=== PATIENT | male | born 1965 | race Caucasian/White ===

== ENCOUNTER 2021-06-22 19:37 | Emergency (ER) | payer OTHER ==
[~2021-06-22 19:37] MED LIST: BENICAR HCT 401 EAC1 PO
[2021-06-22 20:10] LABS: BASOPHIL 0.7 % (0-2); EOSINOPHIL 0.5 % (0-5); HCT 45.9 % (42.0-52.0); HGB 15.8 g/dl (13.2-18.0); LYMPHOCYTE 12.5 % (15-48); MCH 30.2 pg (25.0-31.0); MCHC 34.4 g/dL (32.0-36.0); MCV 87.6 fL (78.0-100.0); MONOCYTE 14.9 % (0-12); MPV 10.2 fL (6.0-9.5); NEUTROPHIL 70.8 % (41-80); NRBC 0; PLT 198 K/uL (150-400); RBC 5.24 M/uL (4.70-6.00); RDW 13.1 % (11.5-14.0); WBC 10.6 K/uL (4.0-10.5)
[2021-06-22 20:35] LABS: ALBUMIN 3.9 g/dL (3.4-5.0); BILIRUBIN - TOTAL 0.8 mg/dL (0.2-1.0); BUN/CREAT RATIO (CALC) 7.3 RATIO; CREATININE 1.5 mg/dL (0.67-1.17); FT4 (FREE T4) 0.9 ng/dL (0.76-1.46); GLOBULIN (CALCULATION) 3.8 g/dL; POTASSIUM 3.3 mmol/L (3.5-5.1); TOTAL PROTEIN 7.7 g/dL (6.4-8.2)
[2021-06-22 20:58] LABS: BILIRUBIN NEGATIVE (NEGATIVE); BLOOD NEGATIVE Ery/uL (NEGATIVE); CLARITY CLEAR (CLEAR); COLOR YELLOW (YELLOW); GLUCOSE (U) NORMAL (NORMAL); LEUKOCYTES NEGATIVE Leu/uL (NEGATIVE); NITRITE NEGATIVE (NEGATIVE); PROTEIN NEGATIVE (NEGATIVE); SPECIFIC GRAVITY 1.025 (1.001-1.030); UROBILINOGEN 0.2 mg/dL (0.2-1.0)
[2021-06-22 21:01] LABS: AMPHETAMINES NEGATIVE (NEGATIVE); BARBITURATES NEGATIVE (NEGATIVE); ECSTASY (MDMA) NEGATIVE (NEGATIVE); MARIJUANA (THC) NEGATIVE (NEGATIVE); METHADONE NEGATIVE (NEGATIVE); OPIATES POSITIVE (NEGATIVE); OXYCODONE NEGATIVE (NEGATIVE)
[2021-06-22 21:11] LABS: CORONAVIRUS 2019 SARS-COV-2 NEGATIVE (NEGATIVE); INFLUENZA A NAA POSITIVE (NEGATIVE)
== END 2021-06-22 22:00 | disposition home or self-care (01) ==
LOC: FER 19:37
PROVIDERS: Internal Medicine
DX: J10.89 Influenza due to other identified influenza virus with other manifestations (principal); R55 Syncope and collapse; N17.9 Acute kidney failure, unspecified; E86.0 Dehydration; Z88.5 Allergy status to narcotic agent; Z88.8 Allergy status to other drugs, medicaments and biological substances; Z20.822 Contact with and (suspected) exposure to COVID-19; Z28.310 Unvaccinated for COVID-19
CPT/HCPCS: 36415; 71045; 80053; 80305; 81003; 83036; 83735; 83880; 84145; 84439; 84443; 84484; 85025; J7120; U0002

== ENCOUNTER 2021-09-01 18:06 | Emergency (ER) | payer OTHER ==
[2021-09-01 19:34] LABS: BASOPHIL 0.6 % (0-2); EOSINOPHIL 1.2 % (0-5); HCT 42.6 % (42.0-52.0); HGB 14.7 g/dl (13.2-18.0); LYMPHOCYTE 10.5 % (15-48); MCH 30.2 pg (25.0-31.0); MCHC 34.5 g/dL (32.0-36.0); MCV 87.7 fL (78.0-100.0); MONOCYTE 6.6 % (0-12); MPV 10.3 fL (6.0-9.5); NEUTROPHIL 80.8 % (41-80); NRBC 0; PLT 238 K/uL (150-400); RBC 4.86 M/uL (4.70-6.00); RDW 12.9 % (11.5-14.0); WBC 12.4 K/uL (4.0-10.5)
[2021-09-01 19:44] LABS: INR 1.14 (0.9-1.2)
[2021-09-01 19:48] LABS: BUN/CREAT RATIO (CALC) 13.2 RATIO; CREATININE 1.06 mg/dL (0.67-1.17); POTASSIUM 3.7 mmol/L (3.5-5.1)
== END 2021-09-01 21:14 | disposition home or self-care (01) ==
LOC: FER 18:06
PROVIDERS: Physician Assistant
DX: M79.651 Pain in right thigh (principal); Z88.5 Allergy status to narcotic agent; Z88.8 Allergy status to other drugs, medicaments and biological substances; Z28.310 Unvaccinated for COVID-19
CPT/HCPCS: 36415; 80048; 85025; 85610; 93971